=== PATIENT | female | born 1960 | race Hispanic/Latino ===

== ENCOUNTER 2019-08-05 10:56 | Emergency (ER) | payer OTHER ==
[2019-08-05 11:02] VITALS: BP 127/72
[2019-08-05] MEDS ORDERED: IBUPROFEN 600 MG TAB PO ONE (11:52)
[2019-08-05] MEDS ORDERED: traMADol 50 MG TAB PO ONE (11:52)
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
== END 2019-08-05 13:39 | disposition home or self-care (01) ==
LOC: ED 10:56
DX: S16.1XXA Strain of muscle, fascia and tendon at neck level, initial encounter (principal); S39.012A Strain of muscle, fascia and tendon of lower back, initial encounter; Z90.49 Acquired absence of other specified parts of digestive tract; Z79.899 Other long term (current) drug therapy; V49.59XA Passenger injured in collision with other motor vehicles in traffic accident, initial encounter; Y93.89 Activity, other specified; Y92.410 Unspecified street and highway as the place of occurrence of the external cause; Y99.8 Other external cause status
CPT/HCPCS: 72040; 72100